=== PATIENT | male | born 1955 | race Caucasian/White ===

== ENCOUNTER 2019-07-10 09:38 | Inpatient (IN) | payer OTHER, MEDICAID ==
[~2019-07-10] VITALS: Ht 152.4 cm; Wt 79.4 kg
[2019-07-10 09:45] VITALS: BP 182/68
--- NOTE | 2019-07-10 10:04 | NUR ---
64/M referred by PCP to be admitted by Dr. Umberto Barrera for left apical thrombus. Pt had ECHO yesterday. Pt asymptomatic. Denies pain, trauma, SOB, CP. Pt placed on bedside monitor. Refused IV insertion at this time. Will speak to ERMD first. BP elevated 175/75, lungs CTAB 98% RA. NAD; bedrails up x1; ERMD to evaluate. med hx: htn,dm, high cholesterol, gerd, heart attack 8 years ago, stent
--- NOTE | 2019-07-10 10:19 | NUR ---
Notified Dr. Hagan of pt BP and referral for left apical thrombus to be admitted under Dr. Barrera.
--- NOTE | 2019-07-10 10:35 | NUR ---
Dr. Hagan evaluating pt at bedside.
--- NOTE | 2019-07-10 10:57 | NUR ---
CXR AT BEDSIDE
--- NOTE | 2019-07-10 11:03 | NUR ---
EMT AT BEDSIDE FOR EKG. BOGGER OPERATOR AT BEDSIDE FOR BLOOD DRAW.
[2019-07-10 11:31] LABS: BASOPHILS # (AUTO) 0.1 K/uL (0.00-0.22); BASOPHILS % (AUTO) 0.9 % (0.0-2.0); EOSINOPHILS # (AUTO) 0.1 K/uL (0-0.4); EOSINOPHILS % (AUTO) 1.1 % (0.0-4.0); HEMATOCRIT 45.8 % (36-52); HEMOGLOBIN 15.3 g/dL (12.0-18.0); LYMPHOCYTES # (AUTO) 1.4 K/uL (2.0-11.5); LYMPHOCYTES % (AUTO) 21.1 % (20.5-51.1); MEAN CORPUSCULAR HEMOGLOBIN 31 pg (27-31); MEAN CORPUSCULAR HGB CONC 33 g/dL (33-37); MEAN CORPUSCULAR VOLUME 91.2 fL (80-94); MONOCYTES # (AUTO) 0.5 K/uL (0.8-1.0); MONOCYTES % (AUTO) 7.2 % (1.7-9.3); NEUTROPHILS # (AUTO) 4.6 K/uL (1.8-7.7); NEUTROPHILS % (AUTO) 69.7 % (42.2-75.2); PLATELET COUNT (AUTO) 166 K/uL (140-450); RED BLOOD CELL COUNT(AUTO) 5.02 MIL/uL (4.20-6.10); RED CELL DISTRIBUTION WIDTH 13.6 % (11.6-13.7); WHITE BLOOD COUNT (AUTO) 6.6 K/uL (4.8-10.8)
[2019-07-10 11:49] LABS: ALBUMIN 4.2 g/dL (3.4-5.0); ANION GAP 15.5 (8-16); CARBON DIOXIDE 26.8 mmol/L (21-32); POTASSIUM 4.3 mmol/L (3.5-5.1); TOTAL BILIRUBIN 0.5 mg/dL (0.0-1.0)
[2019-07-10] MEDS ORDERED: METO50TA34 PO (11:58)
[2019-07-10] MEDS ORDERED: SIMV20TA1 PO (11:58)
[2019-07-10] MEDS ORDERED: NITR0.4S14 SL (11:58)
[2019-07-10] MEDS ORDERED: LISI2.5T5 PO (11:58)
[2019-07-10] MEDS ORDERED: TRI48 PO (11:58)
[2019-07-10] MEDS ORDERED: METF500T PO (11:58)
[2019-07-10] MEDS ORDERED: GLIM2TAB3 PO (11:58)
[2019-07-10] MEDS ORDERED: KETO120S5 TP (11:58)
[2019-07-10] MEDS ORDERED: OMEP20TC10 PO (11:58)
[2019-07-10] MEDS ORDERED: ASPI-1718 PO (11:58)
[2019-07-10] MEDS ORDERED: HEPARIN PER PHARMACY MC PRN (12:05)
--- NOTE | 2019-07-10 12:10 | NUR ---
RECEIVE REPORT FROM ER NURSE, PT IS AAOX4, IV SITE INTACT, IS STABLE, NO SIGNS OF DISTRESS NOTED, INTRODUCE SELF, INTRODUCE TO THE ROOM, UPDATE WHITEBOARD, FAMILY AT BEDSIDE, CALL LIGHT WITHIN REACH.
[2019-07-10 12:17] LABS: PROTHROMBIN TIME 10.3 secs (10.8-13.4)
--- NOTE | 2019-07-10 12:20 | NUR ---
Patient will be admitted to care of DR Dory PLUMMER. Admited to TELE. Will go to [id number] . Belongings list completed. Report to TADEO CARBAJAL.
[2019-07-10] MEDS ORDERED: LISINOPRIL 5 MG TAB PO SCH (13:48)
--- NOTE | 2019-07-10 13:54 | NUR ---
GAVE PT ORDERED MEDICATION, PT EDUCATION GIVE, PT TOLERATE WELL, PT IS STABLE, CALL LIGHT WITHIN REACH.
[2019-07-10] MEDS ORDERED: DEXTROSE 50% 50 ML SYR IVP PRN (14:10)
[2019-07-10] MEDS ORDERED: INSULIN LISPRO SLIDING SCALE 100 UNITS/ML VIAL SUBQ PRN (14:10)
[2019-07-10 16:00] VITALS: BP 140/52
[2019-07-10] MEDS: BLOOD GLUCOSE MONITORING 1 DEV DEV FS SCH ×2 (16:30→21:29)
--- NOTE | 2019-07-10 16:56 | NUR ---
GAVE PT HEPARIN TO START THE HEPARIN DRIP, PT EDUCATION GIVEN, PT TOLERATED WELL, CALL LIGHT WITHIN REACH.
[2019-07-10] MEDS: hePARIN / DEXT 5% PREMIX 250 ML IV SCH (17:11)
--- NOTE | 2019-07-10 17:11 | NUR ---
STARTED HEPARIN DRIP, PT EDUCATION GIVE, PT IS STABLE, CALL LIGHT WITHIN REACH.
[2019-07-10] MEDS ORDERED: LORazepam 2 MG/ML VIAL IVP PRN (17:50)
[2019-07-10] MEDS ORDERED: ONDANSETRON 4 MG/2 ML VIAL IVP PRN (17:50)
[2019-07-10] MEDS ORDERED: HYDROcodone/APAP 5/325 MG 1 TAB TAB PO PRN (17:50)
[2019-07-10] MEDS ORDERED: ACETAMINOPHEN 325 MG TAB PO PRN (17:50)
[2019-07-10] MEDS: metFORMIN 500 MG TAB PO SCH (18:33)
[2019-07-10] MEDS: FENOFIBRATE 48 MG TAB PO SCH (18:33)
[2019-07-10] MEDS: METOPROLOL 50 MG TAB PO SCH (18:33)
[2019-07-10] MEDS: WARFARIN 5 MG TAB PO SCH (18:35)
--- NOTE | 2019-07-10 19:20 | NUR ---
GAVE REPORT TO NIGHT NURSE FOR CONTINUITY OF CARE, PT IS STABLE
--- NOTE | 2019-07-10 19:21 | NUR ---
RECEIVED PT ON BED, AAOX4, ABLE TO MAKE NEEDS KNOWN, VITAL SIGNS STABLE, DENIES ANY PAIN OR SOB, ON HEPARIN DRIP INFUSING WELL, AT 7.9ML/H, NEXT PTT DRAWN AT 2315, PLAN OF CARE DISCUSSED TOGETHER WITH PT'S DAUGHTERS AT BEDSIDE, SAFETY MEASURES IN PLACE, CALL LIGHT WITHIN REACH.
[2019-07-10 20:00] VITALS: BP 149/67
[2019-07-10] MEDS ORDERED: SIMVASTATIN 20 MG TAB PO SCH (21:00)
--- NOTE | 2019-07-10 21:30 | NUR ---
BLOOD SUGAR CHECKED WITH 97 RESULT, SNACK PROVIDED, ZOCOR NOT GIVEN PT STATED THAT HE STOPPED TAKING IT, ALL NEEDS ATTENDED.
[2019-07-11] VITALS: BP 116/52
--- NOTE | 2019-07-11 00:15 | NUR ---
PT AWAKE, VITAL SIGNS STABLE, SB ON TELE, ASYMPTOMATIC, DENIES CHEST PAIN BUT COMPLAINING OF HEADACHE, MEDICATED PRN WITH NORCO, PTT RESULT IN WITH 29.6, HEPARIN PROTOCOL IN PLACE, INCREASE RATE TO 10.5 ML/H, NEXT PTT DRAW AT 0615, CONTINUE TO MONITOR CLOSELY.
[2019-07-11] MEDS: hePARIN / DEXT 5% PREMIX 250 ML IV SCH ×3 (00:16→19:21)
[2019-07-11 04:00] VITALS: BP 118/49
--- NOTE | 2019-07-11 04:00 | NUR ---
PT SLEEPING, EASILY AROUSABLE, VITAL SIGNS STABLE, SB WITH 48 BPM, DENIES ANY PAIN OR SOB, HEPARIN DRIP INFUSING WELL AT 10.5 ML/H, MONITORED CLOSELY.
--- NOTE | 2019-07-11 06:00 | NUR ---
BLOOD SUGAR CHECKED WITH 120 RESULT, NO COVERAGE NEEDED, DENIES ANY PAIN, NO SOB NOTED, HEPARIN DRIP INFUSING WELL AT 10.5ML/H, COFFEE PROVIDED PER REQUEST, MONITORED CLOSELY.
[2019-07-11] MEDS: BLOOD GLUCOSE MONITORING 1 DEV DEV FS SCH ×4 (06:49→21:29)
--- NOTE | 2019-07-11 07:28 | NUR ---
PT AWAKE, NO DISTRESS NOTED, BEDSIDE REPORT GIVEN TO RN TRAV FOR CONTINUITY OF CARE.
--- NOTE | 2019-07-11 07:29 | NUR ---
REPORT RECEIVED FROM BASEBALL HAND SEWER NURSE, PT AAOX4, RESP EVEN UNLABORED ON RA, SKIN WARM DRY COLOR WNL, PT DENIES PAIN OR DISCOMFORT, HEPARIN DRIP INFUSING AT 1050UNITS/10.5ML/HR TO LAC 20G, SITE WNL, POC REVIEWED, PT DENIES ANY IMMEDIATE NEEDS, WILL CONTIUE TO MONITOR.
[2019-07-11 07:38] LABS: BASOPHILS % (AUTO) 0.5 % (0.0-2.0); EOSINOPHILS # (AUTO) 0.2 K/uL (0-0.4); EOSINOPHILS % (AUTO) 3.3 % (0.0-4.0); HEMATOCRIT 42.6 % (36-52); HEMOGLOBIN 14.3 g/dL (12.0-18.0); LYMPHOCYTES % (AUTO) 30.3 % (20.5-51.1); MEAN CORPUSCULAR HEMOGLOBIN 31 pg (27-31); MEAN CORPUSCULAR HGB CONC 34 g/dL (33-37); MEAN CORPUSCULAR VOLUME 91.9 fL (80-94); MONOCYTES # (AUTO) 0.5 K/uL (0.8-1.0); MONOCYTES % (AUTO) 7.9 % (1.7-9.3); NEUTROPHILS # (AUTO) 3.8 K/uL (1.8-7.7); PLATELET COUNT (AUTO) 150 K/uL (140-450); RED BLOOD CELL COUNT(AUTO) 4.64 MIL/uL (4.20-6.10); RED CELL DISTRIBUTION WIDTH 13.7 % (11.6-13.7); WHITE BLOOD COUNT (AUTO) 6.6 K/uL (4.8-10.8)
[2019-07-11 08:00] VITALS: BP 123/58
[2019-07-11 08:15] LABS: MAGNESIUM 1.9 mg/dL (1.8-2.4); PHOSPHORUS 3.7 mg/dL (2.5-4.9)
[2019-07-11 08:16] LABS: CARBON DIOXIDE 29.2 mmol/L (21-32); CREATININE 1.1 mg/dL (0.7-1.3); POTASSIUM 4.2 mmol/L (3.5-5.1)
[2019-07-11 08:25] LABS: PROTHROMBIN TIME 10.9 secs (10.8-13.4)
--- NOTE | 2019-07-11 08:51 | NUR ---
PTT 51.9 PER LAB, NO CHANGE IN HEPARIN DRIP RATE PER PROTOCOL, PT WITHOUT S/S OF BLEEDING, WILL CONTINUE AT 1050UNITS(10.5ML/HR).
[2019-07-11] MEDS: NICOTINE TRANSD SYS 14 MG/24 HR PATCH TD SCH ×2 (09:00→09:34)
--- NOTE | 2019-07-11 09:06 | NUR ---
PATIENT HAS BEEN SCREENED AND CATEGORIZED MODERATE NUTRITION RISK. PATIENT WILL BE SEEN WITHIN 3-5 DAYS OF ADMISSION. 07/13/19 07/15/[address]
[2019-07-11] MEDS: ASPIRIN 81 MG TAB.CHEW PO SCH (09:34)
[2019-07-11] MEDS: LISINOPRIL 5 MG TAB PO SCH (09:34)
[2019-07-11] MEDS: GLIMEPIRIDE 2 MG TAB PO SCH (09:35)
[2019-07-11] MEDS: metFORMIN 500 MG TAB PO SCH ×2 (09:35→17:24)
--- NOTE | 2019-07-11 09:38 | NUR ---
AM MEDS GIVEN, PT PAXTON PILLS WELL, REFUSES NICOTINE PATCH, STATES HE DOES NOT NEED IT NOW. AT BEDSIDE. DENIES ANY NEEDS.
[2019-07-11 12:00] VITALS: BP 143/66
--- NOTE | 2019-07-11 12:22 | NUR ---
BLOOD SUGAR 163, PER PROTOCOL, PT TO RECEIVE 2U INSULIN, PT REFUSES BECAUSE HE HAS NEVER TAKEN INSULIN BEFORE AND BLOOD SUGAR IS NOT THAT HIGH.
--- NOTE | 2019-07-11 14:30 | NUR ---
PT SITTING UP IN BED IN NO ACUTE DISTRESS, CONTINUES WITH HEP DRIP, DENIES PAIN OR DISCOMFORT, DENIES ANY NEEDS AT THIS TIME, WILL CONTINUE TO MONITOR.
[2019-07-11 16:00] VITALS: BP 99/57
[2019-07-11] MEDS: METOPROLOL 50 MG TAB PO SCH (17:00)
[2019-07-11] MEDS: FENOFIBRATE 48 MG TAB PO SCH (17:24)
[2019-07-11] MEDS: WARFARIN 5 MG TAB PO SCH (17:28)
--- NOTE | 2019-07-11 17:31 | NUR ---
NEW BAG OF HEPARIN STARTED, PTT DRAWN AT 1500, AWAITING RESULTS, CONTINUE WITH 1050UNITS PER HOUR, BLOOD SUGAR 104, NO INSULIN NEEDED PER SLIDING SCALE, SCHEDULED METOPROLOL HELD FOR DECREASED BP 99/57. PT DENIES ANY PAIN OR DISCOMFORT, NO ACTIVE BLEEDING OR BRUISING NOTED, DENIES ANY NEEDS, DAUGHTER AT BEDSIDE, WILL CONTINUE TO MONITOR.
[2019-07-11 18:17] LABS: CREATINE KINASE MB 0.5 ng/mL (0-3.6)
--- NOTE | 2019-07-11 19:15 | NUR ---
PTT 33.2, PER PROTOCOL- HEPARIN BOLUS 3960 UNITS GIVEN, RATE INCREASED BY 260 UNITS TO 1310 UNITS/HR (13.1ML/HR), NO S/S OF BLEEDING NOTED.
--- NOTE | 2019-07-11 19:20 | NUR ---
REPORT GIVEN TO NUCLEAR FUEL PROCESSING TECHNICIAN NURSE JEFFREY GONZALES IN STABLE CONDITION.
--- NOTE | 2019-07-11 19:22 | NUR ---
RECEIVED PT ON BED, AAOX4, ABLE TO MAKE NEEDS KNOWN, VITAL SIGNS TAKEN, BP SLIGHTLY ELEVATED, ASYMPTOMATIC, DENIES ANY PAIN AND NO SOB NOTED, HEPARIN DRIP INFUSING WELL AT 1310 UNITS/H, ON HEPARIN DRIP PROTOCOL, PLAN OF CARE DISCUSSED, SAFETY MEASURES IN PLACE, CALL LIGHT WITHIN REACH.
[2019-07-11 20:00] VITALS: BP 148/72
--- NOTE | 2019-07-11 20:15 | NUR ---
BLOOD SUGAR CHECKED WITH 141 RESULT, NO COVERAGE NEEDED, REFUSED BEDTIME SNACK BUT PROVIDED WITH COFFEE PER REQUEST, FAMILY VISITORS AT BEDSIDE, ALL NEEDS ATTENDED.
--- NOTE | 2019-07-11 21:35 | NUR ---
PT SEEN AMBULATING TO BR WITH STEADY GAIT, VOIDED FREELY, DENIES ANY DIZZINESS OR SOB, MONITORED CLOSELY.
[2019-07-12] VITALS: BP 129/55
--- NOTE | 2019-07-12 | NUR ---
PT SLEEPING, EASILY AROUSABLE, VITAL SIGNS STABLE, SB ON TELE, ASYMPTOMATIC, DENIES ANY PAIN AND NO SOB NOTED, HEPARIN DRIP INFUSING WELL AT 1310 UNITS/H, NEXT PTT DRAW AT 0115, CONTINUE TO MONITOR CLOSELY.
--- NOTE | 2019-07-12 02:00 | NUR ---
PT IN BED SLEEPING BUT AROUSABLE TO NAME AND LIGHT TOUCH, IV SITE INTACT AND ASYMPTOMATIC; HEPARIN GTT CONTINUES AT SAME RATE 1310 UNITS, NO S/S OF BRUISING OR BLEEDING.ALL UNIVERSAL PRECAUTIONS IN PLACE.
[2019-07-12 04:00] VITALS: BP 135/69
--- NOTE | 2019-07-12 05:50 | NUR ---
PT SLEEPING, EASILY AROUSABLE, BLOOD SUGAR CHECKED WITH 140 RESULT, NO COVERAGE NEEDED, HEPARIN DRIP INFUSING WELL AT 1310 UNITS PER HOUR, NEXT PTT AT 0719, MONITORED CLOSELY.
[2019-07-12] MEDS: BLOOD GLUCOSE MONITORING 1 DEV DEV FS SCH ×4 (06:40→20:53)
--- NOTE | 2019-07-12 07:20 | NUR ---
PT AWAKE, NO DISTRESS NOTED, BEDSIDE REPORT GIVEN TO SOLOMON ARAGON FOR CONTINUITY OF CARE.
--- NOTE | 2019-07-12 07:57 | NUR ---
RECEIVED PT FROM LINE OUT MAN FOR CONTINUITY OF CARE. PT IN BED, AAOX4, ABLE TO MAKE NEEDS KNOWN. VITAL SIGNS TAKEN, BP SLIGHTLY ELEVATED BUT ASYMPTOMATIC. PT DENIES ANY PAIN AND NO SOB NOTED. HEPARIN DRIP INFUSING WELL AT 1310 UNITS/HR. ON HEPARIN DRIP PROTOCOL. PT SKIN INTACT. IV IN THE LEFT AC 20G. DISCUSSED POC WITH PT AND PT VERBALIZED UNDERSTANDING. SAFETY MEASURES IN PLACE, CALL LIGHT WITHIN REACH. BED IN LOW POSITION. WILL ROUND FREQUENTLY ON PT.
[2019-07-12 08:00] VITALS: BP 123/60
[2019-07-12 08:24] LABS: BASOPHILS # (AUTO) 0.1 K/uL (0.00-0.22); EOSINOPHILS # (AUTO) 0.2 K/uL (0-0.4); EOSINOPHILS % (AUTO) 2.9 % (0.0-4.0); HEMATOCRIT 45.1 % (36-52); HEMOGLOBIN 15.1 g/dL (12.0-18.0); LYMPHOCYTES # (AUTO) 1.8 K/uL (2.0-11.5); LYMPHOCYTES % (AUTO) 32.8 % (20.5-51.1); MEAN CORPUSCULAR HEMOGLOBIN 31 pg (27-31); MEAN CORPUSCULAR HGB CONC 34 g/dL (33-37); MEAN CORPUSCULAR VOLUME 91.3 fL (80-94); MONOCYTES # (AUTO) 0.4 K/uL (0.8-1.0); NEUTROPHILS # (AUTO) 3.1 K/uL (1.8-7.7); NEUTROPHILS % (AUTO) 55.3 % (42.2-75.2); PLATELET COUNT (AUTO) 160 K/uL (140-450); RED BLOOD CELL COUNT(AUTO) 4.94 MIL/uL (4.20-6.10); RED CELL DISTRIBUTION WIDTH 13.9 % (11.6-13.7); WHITE BLOOD COUNT (AUTO) 5.6 K/uL (4.8-10.8)
[2019-07-12 08:26] LABS: ANION GAP 13.9 (8-16); CARBON DIOXIDE 26.5 mmol/L (21-32); POTASSIUM 4.4 mmol/L (3.5-5.1)
[2019-07-12 08:29] LABS: PROTHROMBIN TIME 12.1 secs (10.8-13.4)
[2019-07-12] MEDS: NICOTINE TRANSD SYS 14 MG/24 HR PATCH TD SCH (09:00)
--- NOTE | 2019-07-12 10:10 | NUR ---
ADMINISTERED MORNING MEDS TO PT. PT TOLERATED WELL. ALL NEEDS CURRENTLY MET. WILL CONTINUE TO ROUND FREQUENTLY ON PT.
[2019-07-12] MEDS: ASPIRIN 81 MG TAB.CHEW PO SCH (10:44)
[2019-07-12] MEDS: metFORMIN 500 MG TAB PO SCH ×2 (10:44→17:31)
[2019-07-12] MEDS: LISINOPRIL 5 MG TAB PO SCH (10:44)
[2019-07-12] MEDS: GLIMEPIRIDE 2 MG TAB PO SCH (10:45)
--- NOTE | 2019-07-12 11:53 | NUR ---
PT BS IS 157 AT THIS TIME. PT REFUSING INSULIN COVERAGE OF 2 UNITS. WILL ROUND FREQUENTLY ON PT. ALL NEEDS MET AT THIS TIME.
[2019-07-12 12:00] VITALS: BP 144/67
--- NOTE | 2019-07-12 13:17 | NUR ---
PT WALKING AROUND UNIT. ALL NEEDS MET. WILL CONTINUE TO ROUND FREQUENTLY ON PT. BED IN LOW POSITION, CALL LIGHT WITHIN REACH.
[2019-07-12] MEDS: hePARIN / DEXT 5% PREMIX 250 ML IV SCH (14:22)
--- NOTE | 2019-07-12 14:47 | NUR ---
ALLY assessment/discharge plan High Risk DC Screen Yes Name: Norah Brito Home Relationship: Pre-Admission Living Arrangements: Lives with Other Other: Norah Brito Prior ADL Independent Current Home Health Name/Tel: N/A Current DME/02 Name/Tel: N/A Current Hospice Name/Tel: N/A Current Dialysis Name/Tel: N/A Healthcare Decision Maker: Patient Advance Directive No Information Taught: Advance Directive Person Taught: Children Patient Teaching Tools: Computer Generated Print Verbal Factors Affecting Learning: None Participation Level: Active Evaluation: Gestures Understanding Verbalizes Understanding Educator: ALLY Nazario Discipline: Case Mgt/Social Svcs Tentative Discharge Plan Summary: Patient is a 64 year old male admitted for apical thrombus. I met with patient and patient's daughter Norah Brito at bedside. Patient's name is also Norah Brito. Patient alert and oriented x4. Patient lives with his Norah and plans to return home upon discharge. Patient's pcp is [facility] ([place], [place]) and he does not have any difficulty filling his prescriptions at pharmacy. He drives to pcp's office. He denied hx of mental health. He also denied alcohol/substance abuse. I reviewed Advance Driective in chart, two witnesses are also the primary and secondary agents, form is not signed by patient. I gave Advance Directive back to patient and explained to both patient and his daughter Norah Advance Directive is not valid and explained why. They both verbalized understanding. I provided them with education on Advance Directive and provided new form. They do not have any questions/concerns at this time. Firmware Architect and/or Delimer will follow up as needed. Signature: ALLY Nazario Date: Jul 12, 2019
--- NOTE | 2019-07-12 15:36 | NUR ---
PT RESTING IN BED WITH DAUGHTER AT BEDSIDE. ALL NEEDS MET. WILL CONTINUE TO ROUND FREQUENTLY ON PT.
[2019-07-12 16:00] VITALS: BP 146/63
[2019-07-12] MEDS ORDERED: WARFARIN 1 MG TAB ONE (17:27)
[2019-07-12] MEDS ORDERED: WARFARIN 5 MG TAB ONE (17:27)
[2019-07-12] MEDS: METOPROLOL 50 MG TAB PO SCH (17:31)
[2019-07-12] MEDS: FENOFIBRATE 48 MG TAB PO SCH (17:31)
[2019-07-12] MEDS: WARFARIN 5 MG, WARFARIN 1 MG PO SCH ×2 (17:33)
--- NOTE | 2019-07-12 17:47 | NUR ---
PT RESTING IN BED. ALL NEEDS MET. WILL CONTINUE TO ROUND ON PT.
--- NOTE | 2019-07-12 19:30 | NUR ---
RECEIVED REPORT FORM MARGO CARBAJAL DAYSHIFT NURSE AT BEDSIDE FOR CONTINUITY OF CARE, PT IN STABLE CONDITION.
--- NOTE | 2019-07-12 19:32 | NUR ---
ENDORSED PT TO ELECTRICAL AND RADIO AIRCRAFT MECHANIC FOR CONTINUITY OF CARE. PT IN STABLE CONDITION AT THIS TIME.
[2019-07-12 20:00] VITALS: BP 133/50
--- NOTE | 2019-07-12 20:00 | NUR ---
PT IN BED AOX4 GREENLANDIC AND AUSTRIAN SPEAKING. SKIN INTACT, HE HAS AN IV SITE ON LAC INTACT AND ASYMPTOMATIC. ITS RUNNING HEPARIN GTT AT 1310 UNITS PT HAS NO S/S OF BLEEDING OR BRUISING NOTED. HIS RESPIRATIONS ARE EVEN AND UNLABORED, POSITIVE BOWEL SOUNDS IN ALL 4 QUADS. V/S FOLLOWS; T 97.3 P 53 R 18 B/P 133/50 02 97% ON ROOM AIR. ALL UNIVERSAL PRECAUTIONS IN PLACE.
--- NOTE | 2019-07-12 21:00 | NUR ---
PT FINGERSTICK IS 111, NO HUMALOG COVERAGE NEEDED. NO S/S OF BRUISING OR BLEEDING. HEPARIN GTT RUNNING ORDERED.ALL UNIVERSAL PRECAUTIONS IN PLACE.
--- NOTE | 2019-07-12 22:00 | NUR ---
PT IN BED AWAKE AND SPEAKING WITH ROOMMATE, NO S/S OF PAIN OR DISTRESS NOTED ALL UNIVERSAL PRECAUTIONS IN PLACE.
[2019-07-13] VITALS (7 sets, daily range): BP systolic 116–147; BP diastolic 57–70
--- NOTE | 2019-07-13 | NUR ---
PT IN BED ASLEEP BUT AROUSABLE TO NAME AND LIGHT TOUCH, NO C/O VOICED BY PT . IV HEPARIN GTT CONTINUES AT SAME RATE OF 1310. NO S/S OF BRUISING OR BLEEDING NOTED. PT RESPIRATIONS EVEN AND UNLABORED. V/S A FOLLOWS: T 98.4 P 63 R 18 B/P 116/62 02 98% ON ROOM AIR. ARE EVEN AND UNLABORED , NO C/O VOICED AT THIS TIME AND ALL UNIVERSAL PRECAUTIONS IN PLACE.
[2019-07-13] MEDS: BLOOD GLUCOSE MONITORING 1 DEV DEV FS SCH ×4 (05:40→20:03)
--- NOTE | 2019-07-13 07:20 | NUR ---
RECEIVED PT FROM GRADE SCHOOL TEACHER NURSE, KJ, PT IS AWAKE AND SEATED ON THE BED WITH IV LINE ON THE LEFT AC G. 20 WITH HEPARIN DRIP INFUSING AT 1310 UNITS/HR, PT DENIES PAIN AND NO SOB NOTED, WILL CONTINUE TO MONITOR PT.
[2019-07-13] MEDS: NICOTINE TRANSD SYS 14 MG/24 HR PATCH TD SCH (09:00)
[2019-07-13] MEDS: ASPIRIN 81 MG TAB.CHEW PO SCH (09:00)
[2019-07-13] MEDS: metFORMIN 500 MG TAB PO SCH ×2 (09:01→17:07)
[2019-07-13] MEDS: GLIMEPIRIDE 2 MG TAB PO SCH (09:01)
[2019-07-13] MEDS: LISINOPRIL 5 MG TAB PO SCH (09:02)
[2019-07-13] MEDS: hePARIN / DEXT 5% PREMIX 250 ML IV SCH (10:34)
--- NOTE | 2019-07-13 10:35 | NUR ---
A NEW BAG OF HEPARIN IVF WAS STARTED NOW.
[2019-07-13 13:30] LABS: BASOPHILS # (AUTO) 0.1 K/uL (0.00-0.22); EOSINOPHILS # (AUTO) 0.2 K/uL (0-0.4); EOSINOPHILS % (AUTO) 2.4 % (0.0-4.0); HEMOGLOBIN 15.8 g/dL (12.0-18.0); LYMPHOCYTES # (AUTO) 2.2 K/uL (2.0-11.5); LYMPHOCYTES % (AUTO) 30.9 % (20.5-51.1); MEAN CORPUSCULAR HEMOGLOBIN 31 pg (27-31); MEAN CORPUSCULAR HGB CONC 34 g/dL (33-37); MEAN CORPUSCULAR VOLUME 91.2 fL (80-94); MONOCYTES # (AUTO) 0.6 K/uL (0.8-1.0); MONOCYTES % (AUTO) 8.2 % (1.7-9.3); NEUTROPHILS # (AUTO) 4.1 K/uL (1.8-7.7); NEUTROPHILS % (AUTO) 57.5 % (42.2-75.2); PLATELET COUNT (AUTO) 172 K/uL (140-450); RED BLOOD CELL COUNT(AUTO) 5.15 MIL/uL (4.20-6.10); RED CELL DISTRIBUTION WIDTH 14.2 % (11.6-13.7); WHITE BLOOD COUNT (AUTO) 7.1 K/uL (4.8-10.8)
[2019-07-13 13:49] LABS: ANION GAP 15.5 (8-16); CARBON DIOXIDE 26.5 mmol/L (21-32)
[2019-07-13 13:51] LABS: PROTHROMBIN TIME 11.6 secs (10.8-13.4)
--- NOTE | 2019-07-13 14:14 | NUR ---
NILESH FROM LAB CALLED AND INFORMED THAT PT'S PTT IS 52.6, NOTED AND WILL CHECK THEARPEUTIC VALUE.
[2019-07-13] MEDS ORDERED: WARFARIN 1 MG TAB ONE (16:37)
[2019-07-13] MEDS ORDERED: WARFARIN 5 MG TAB ONE (16:37)
[2019-07-13] MEDS: METOPROLOL 50 MG TAB PO SCH (17:06)
[2019-07-13] MEDS: FENOFIBRATE 48 MG TAB PO SCH (17:06)
[2019-07-13] MEDS: WARFARIN 5 MG, WARFARIN 1 MG PO SCH ×2 (17:13)
--- NOTE | 2019-07-13 19:10 | NUR ---
ENDORSED PT TO EDGE STAINER NURSEKJ FOR CONTINUITY OF CARE, PT IS STABLE AT THIS TIME.
--- NOTE | 2019-07-13 19:10 | NUR ---
RECEIVED REPORT FROM JEWELS CARBAJAL DAYSHIFT NURSE AT BEDSIDE FOR CONTINUITY OF CARE, PT IN STABLE CONDITION.
--- NOTE | 2019-07-13 19:57 | NUR ---
PT IN BED FAMILY AT BEDSIDE, HE IS SITTING UP AOX4 WITH NO C/O VOICED AT THIS TIME IV SITE REMAINS INTACT AND ASYMPTOMATIC IT IS RUNNING HEPARIN GTT AT THE RATE OF 1310. V/S FOLLOWS: T 98.7 P 58 R 18 B/P 137/58 02 97% ON ROOM AIR. FINGERSTICK IS 184, PT DECLINES ANY HUMALOG COVERAGE AT THIS TIME. ALL UNIVERSAL FALLS PRECAUTIONS IN PLACE.
--- NOTE | 2019-07-13 22:30 | NUR ---
PT IN BED NO S/S OF PAIN OR DISTRESS NOTED, IV SITE ON LAC INTACT AND ASYMPTOMATIC. ALL UNIVERSAL FALLS PRECAUTIONS IN PLACE. BATTERIES FOR TELEBOX CHANGED.
--- NOTE | 2019-07-13 23:43 | NUR ---
PT IN BED NO S/S OF PAIN OR DISTRESS NOTED, PT PATRICIO PAIN. IV SITE INTACT AND ASYMPTOMATIC, RUNNING HEPARIN GTT AT 1310. V/S FOLLOWS: T 97.9 P 61 R 18 B/P 126/57 02 96% ON ROOM AIR . ALL UNIVERSAL FALLS PRECAUTIONS IN PLACE.
--- NOTE | 2019-07-14 02:00 | NUR ---
PT IN BED SLEEPING NO S/S OF PAIN OR DISTRESS NOTED. ALL UNIVERSAL FALLS IN PLACE.
[2019-07-14 04:00] VITALS: BP 124/61
--- NOTE | 2019-07-14 04:00 | NUR ---
PT IN BED ASLEEP BUT AROUSABLE TO NAME AND LIGHT TOUCH V/S FOLLOWS: T 97.3 P 53 R 18 B/P 124/61 02 97% ON ROOM AIR.
--- NOTE | 2019-07-14 06:00 | NUR ---
PT FINGERSTICK IS 161, HE DECLINES ANY HUMALOG COVERAGE AT THIS TIME. PT ALSO REFUSED LAB DRAWS DUE THIS AM, HE SAID THAT HE MAY ALLOW THE LAB DRAWS LATER. WILL ENDORSE TO NEXT SHIFT.
--- NOTE | 2019-07-14 07:30 | NUR ---
RECEIVED PT FROM HIDE INSPECTOR NURSE, KJ, PT IS AWAKE AND LYING ON THE BED WITH SIDE RAILS UP AND CALL LIGHT WITHIN REACH, PERIPHERAL LINE ON THE LEFT AC G. 20 WITH CONTINUOUS HEPARIN DRIP INFUSING AT 1310 UNITS/HR, PT DENIES PAIN AND NO SIGN OF DISTRESS NOTED. WILL CONTINUE TO MONITOR PT.
[2019-07-14] MEDS: BLOOD GLUCOSE MONITORING 1 DEV DEV FS SCH ×4 (07:40→21:00)
[2019-07-14 08:00] VITALS: BP 125/64
[2019-07-14] MEDS: NICOTINE TRANSD SYS 14 MG/24 HR PATCH TD SCH (09:00)
[2019-07-14] MEDS: ASPIRIN 81 MG TAB.CHEW PO SCH (09:20)
[2019-07-14] MEDS: GLIMEPIRIDE 2 MG TAB PO SCH (09:21)
[2019-07-14] MEDS: metFORMIN 500 MG TAB PO SCH ×2 (09:21→17:47)
--- NOTE | 2019-07-14 09:21 | NUR ---
PT IS AWAKE AND DAUGHTER ON THE BEDSIDE, SCHEDULED AM MEDICATIONS WERE GIVEN TO PT, PARAMETERS CHECKED AND TOLERATED IT. WILL MONITOR PT.
[2019-07-14] MEDS: LISINOPRIL 5 MG TAB PO SCH (09:24)
[2019-07-14 12:00] VITALS: BP 127/59
--- NOTE | 2019-07-14 12:21 | NUR ---
BLOOD GLUCOSE CHECK DONE AT 1130 AND RESULT IS 165 BUR PT REFUSED TO RECEIVED THE INSULIN COVERAGE.
[2019-07-14 14:59] LABS: BASOPHILS # (AUTO) 0.1 K/uL (0.00-0.22); BASOPHILS % (AUTO) 0.8 % (0.0-2.0); EOSINOPHILS # (AUTO) 0.2 K/uL (0-0.4); EOSINOPHILS % (AUTO) 2.4 % (0.0-4.0); HEMATOCRIT 47.2 % (36-52); HEMOGLOBIN 15.7 g/dL (12.0-18.0); LYMPHOCYTES # (AUTO) 2.1 K/uL (2.0-11.5); LYMPHOCYTES % (AUTO) 29.6 % (20.5-51.1); MEAN CORPUSCULAR HEMOGLOBIN 30 pg (27-31); MEAN CORPUSCULAR HGB CONC 33 g/dL (33-37); MEAN CORPUSCULAR VOLUME 91.3 fL (80-94); MONOCYTES # (AUTO) 0.6 K/uL (0.8-1.0); NEUTROPHILS # (AUTO) 4.1 K/uL (1.8-7.7); NEUTROPHILS % (AUTO) 58.2 % (42.2-75.2); PLATELET COUNT (AUTO) 163 K/uL (140-450); RED BLOOD CELL COUNT(AUTO) 5.17 MIL/uL (4.20-6.10)
[2019-07-14 15:11] LABS: PROTHROMBIN TIME 12.3 secs (10.8-13.4)
[2019-07-14 15:12] LABS: ANION GAP 14.4 (8-16); CARBON DIOXIDE 27.6 mmol/L (21-32); CREATININE 1.1 mg/dL (0.7-1.3)
--- NOTE | 2019-07-14 15:15 | NUR ---
PT IS WATCHING TV AND FAMILY ON BEDSIDE, DENIES PAIN. WILL MONITOR PT.
[2019-07-14 16:00] VITALS: BP 152/65
[2019-07-14] MEDS ORDERED: WARFARIN 1 MG TAB ONE (17:22)
[2019-07-14] MEDS ORDERED: WARFARIN 5 MG TAB ONE (17:22)
[2019-07-14] MEDS: FENOFIBRATE 48 MG TAB PO SCH (17:47)
[2019-07-14] MEDS: METOPROLOL 50 MG TAB PO SCH (17:48)
--- NOTE | 2019-07-14 17:48 | NUR ---
PT WAS GIVEN THE SCHEDULED PM MEDICATIONS, PARAMETERS CHECKED AND TOLERATED. IT, DISCUSSED NECESSARY THINGS THAT NEED TO BE AVOIDED AND PT VERBALIZED UNDERSTANDING.
[2019-07-14] MEDS: WARFARIN 5 MG, WARFARIN 1 MG PO SCH ×2 (17:51)
--- NOTE | 2019-07-14 19:10 | NUR ---
ENDORSED PT TO [facility] SHIFT NURSEKJ FOR CONTINUITY OF CARE. PT IS STABLE AT THIS TIME WITH HEPARIN DRIP STILL INFUSING.
--- NOTE | 2019-07-14 19:15 | NUR ---
RECEIVED ENDORSEMENT FOR PLAN OF CARE AT BEDSIDE FROM JEWELS CARBAJAL DAYSHIFT NURSE FOR CONTINUITY OF CARE, PT IN STABLE CONDITION.
[2019-07-14 20:00] VITALS: BP 147/63
--- NOTE | 2019-07-14 20:00 | NUR ---
PT SITTING UP IN BED NO S/S OF PAIN OR DISTRESS NOTED. IV SITE ON LAC 20 GUAGE INTACT AND RUNNING HEPARIN GTT AT 1310 NO S/S OF BRUISING OR BLEEDING. PT ALSO PATRICIO ANY PAIN OR DISCOMFORT. V/S FOLLOWS: T 97.4 P 59 R 18 B/P 149/65 02 97% ON ROOM AIR. ALL UNIVERSAL FALLS PRECAUTIONS IN PLACE .
--- NOTE | 2019-07-14 20:35 | NUR ---
PT FINGERSTICK IS 136, NO HUMALOG COVERAGE REQUIRED, DIABETIC SNACK GIVEN AT BEDSIDE.
--- NOTE | 2019-07-14 22:30 | NUR ---
PT IN BED SITTING UP AND WATCHING TV NO S/S OF PAIN OR DISTRESS NOTED. IV SITE INTACT AND RUNNING HEPARIN GTT AT 1310 ORDERED. ALL UNIVERSAL FALLS PRECAUTIONS IN PLACE.
[2019-07-15] VITALS: BP 149/65
--- NOTE | 2019-07-15 00:30 | NUR ---
PT IN BED SITTING UP AND WATCHING TV NO C/O VOICED, IV SITE INTACT AND ASYMPTOMATIC RUNNING HEPARIN GTT ORDERED. V/S FOLLOWS; T 98.7 P 61 R 18 B/P 147/63 02 98% ON ROOM AIR. ALL FALLS PRECAUTIONS IN PLACE.
[2019-07-15] MEDS: hePARIN / DEXT 5% PREMIX 250 ML IV SCH ×3 (01:40→21:54)
--- NOTE | 2019-07-15 02:20 | NUR ---
PT IN BED ASLEEP, NO S/S OF PAIN OR DISTRESS NOTED. HEPARIN BAG REPLACED.
[2019-07-15 04:00] VITALS: BP 128/65
--- NOTE | 2019-07-15 04:00 | NUR ---
PT IN BED NO S/S OF PAIN OR DISTRESS NOTED IV SITE INTACT AND CONTINUES W HEPARIN GT V/S FOLLOWS:T 98.0 P 58 R 18 B/P 128/65 O2 95% ON ROOM AIR.
--- NOTE | 2019-07-15 06:00 | NUR ---
FINGERSTICK IS 144, NO HUMALOG COVERAGE NEEDED.
[2019-07-15] MEDS: BLOOD GLUCOSE MONITORING 1 DEV DEV FS SCH ×4 (06:20→20:57)
--- NOTE | 2019-07-15 07:15 | NUR ---
RECEIVED BEDSIDE REPORT FROM NIGHT NURSE. PATIENT IS AWAKE, ALERT, AND ORIENTED X4. IV INTACT AND PATENT TO LEFT AC WITH HEPARIN DRIP INFUSING @ 1310 UNITS. PLANS OF CARE DISCUSSED. BED IN LOW POSITION. SAFETY MEASURES IN PLACE. CALL LIGHT WITHIN REACH.
[2019-07-15 08:00] VITALS: BP 130/63
[2019-07-15] MEDS: GLIMEPIRIDE 2 MG TAB PO SCH (08:21)
[2019-07-15] MEDS: LISINOPRIL 5 MG TAB PO SCH (08:21)
[2019-07-15] MEDS: ASPIRIN 81 MG TAB.CHEW PO SCH (08:21)
[2019-07-15] MEDS: metFORMIN 500 MG TAB PO SCH ×2 (08:21→17:23)
[2019-07-15] MEDS: NICOTINE TRANSD SYS 14 MG/24 HR PATCH TD SCH (08:22)
--- NOTE | 2019-07-15 09:00 | NUR ---
PATIENT IS AWAKE, ALERT AND ORIENTED X4. NO S/S OF DISTRESS NOTED. AM MEDICATIONS GIVEN ORDERED. HEPARIN DRIP CONT INFUSING @ 1310UNITS. NO BLEEDING NOTED. CALL LIGHT WITHIN REACH.
--- NOTE | 2019-07-15 11:00 | NUR ---
PATIENT IS AWAKE, ALERT AND ORIENTED X4. NO S/S OF DISTRESS NOTED. AM MEDICATIONS GIVEN ORDERED. HEPARIN DRIP CONT INFUSING @ 1310 UNITS. NO BLEEDING NOTED. CALL LIGHT WITHIN REACH.
[2019-07-15 12:00] VITALS: BP 139/73
--- NOTE | 2019-07-15 13:00 | NUR ---
PATIENT IS AWAKE, ALERT AND ORIENTED X4. PATIENT ATE LUNCH. NO S/S OF DISTRESS NOTED. HEPARIN DRIP CONT INFUSING @ 1310UNITS. NO BLEEDING NOTED. CALL LIGHT WITHIN REACH.
[2019-07-15 14:27] LABS: BASOPHILS # (AUTO) 0.1 K/uL (0.00-0.22); EOSINOPHILS # (AUTO) 0.3 K/uL (0-0.4); EOSINOPHILS % (AUTO) 3.7 % (0.0-4.0); HEMATOCRIT 47.3 % (36-52); HEMOGLOBIN 15.6 g/dL (12.0-18.0); LYMPHOCYTES % (AUTO) 26.4 % (20.5-51.1); MEAN CORPUSCULAR HEMOGLOBIN 30 pg (27-31); MEAN CORPUSCULAR HGB CONC 33 g/dL (33-37); MEAN CORPUSCULAR VOLUME 91.8 fL (80-94); MONOCYTES # (AUTO) 0.7 K/uL (0.8-1.0); MONOCYTES % (AUTO) 9.4 % (1.7-9.3); NEUTROPHILS # (AUTO) 4.4 K/uL (1.8-7.7); NEUTROPHILS % (AUTO) 59.5 % (42.2-75.2); PLATELET COUNT (AUTO) 171 K/uL (140-450); RED BLOOD CELL COUNT(AUTO) 5.15 MIL/uL (4.20-6.10); RED CELL DISTRIBUTION WIDTH 13.9 % (11.6-13.7); WHITE BLOOD COUNT (AUTO) 7.4 K/uL (4.8-10.8)
[2019-07-15 14:47] LABS: PROTHROMBIN TIME 13.5 secs (10.8-13.4)
[2019-07-15 14:51] LABS: ANION GAP 13.2 (8-16); CARBON DIOXIDE 30.2 mmol/L (21-32); CREATININE 1.1 mg/dL (0.7-1.3); POTASSIUM 4.4 mmol/L (3.5-5.1)
--- NOTE | 2019-07-15 15:40 | NUR ---
PATIENT IS AWAKE, VERBALLY RESPONSIVE. FAMILY AT BEDSIDE. NO S/S OF DISTRESS NOTED.
[2019-07-15 16:00] VITALS: BP 125/86
--- NOTE | 2019-07-15 16:09 | NUR ---
07/15/19 RD INITIAL ASSESSMENT COMPLETED PLEASE REFER TO NUTRITION ASSESSMENT UNDER CARE ACTIVITY FOR ESTIMATED NUTRITIONAL NEEDS. 1. RECOMMEND CARDIAC CCHO 60GM DIET. 2. NUTRITION EDUCATION OFFERED, PT DECLINED. 3. RD TO FOLLOW-UP 3-5 DAYS, MODERATE RISK CHACHA FELDER, RD
--- NOTE | 2019-07-15 16:57 | NUR ---
RECEIVED APTT LEVEL 64.9. PER PHARMACY PROTOCOL NO CHANGES. CHARGE NURSE AWARE.
[2019-07-15] MEDS ORDERED: WARFARIN 2.5 MG TAB ONE (17:09)
[2019-07-15] MEDS ORDERED: WARFARIN 5 MG TAB ONE (17:09)
[2019-07-15] MEDS: FENOFIBRATE 48 MG TAB PO SCH (17:23)
[2019-07-15] MEDS: METOPROLOL 50 MG TAB PO SCH (17:23)
[2019-07-15] MEDS: WARFARIN 2.5 MG, WARFARIN 5 MG PO SCH ×2 (17:25)
--- NOTE | 2019-07-15 17:40 | NUR ---
PATIENT IS AWAKE, VERBALLY RESPONSIVE. FAMILY AT BEDSIDE. NO S/S OF DISTRESS NOTED. BS 98. CALL LIGHT WITHIN REACH.
--- NOTE | 2019-07-15 19:03 | NUR ---
PATIENT IS AAOX4. VERBALLY RESPONSIVE. DENIES ANY PAIN OR DISCOMFORT. NO S/S OF DISTRESS NOTED. CALL LIGHT WITHIN REACH. BED IN LOW POSITION. WILL ENDORSE TO NIGHT NURSE FOR CONTINUITY OF CARE.
--- NOTE | 2019-07-15 19:10 | NUR ---
RECEIVED PT ON BED, AAOX4, ABLE TO MAKE NEEDS KNOWN, VITAL SIGNS STABLE, SB ON TELE, ASYMPTOMATIC, DENIES ANY PAIN OR SOB, HEPARIN DRIP INFUSING WELL AT 1310 UNITS/H, PLAN OF CARE DISCUSSED, SAFETY MEASURES IN PLACE, CALL LIGHT WITHIN REACH.
[2019-07-15 20:00] VITALS: BP 134/57
--- NOTE | 2019-07-15 21:00 | NUR ---
BLOOD SUGAR CHECKED WITH 195 RESULT, REFUSED SLIDING SCALE COVERAGE, RISK AND BENEFITS EXPLAINED, STILL REFUSING STATED "IT WILL GO DOWN BY ITSELF", COFFEE PROVIDED PER REQUEST, ALL NEEDS ATTENDED.
[2019-07-16] VITALS: BP 119/56
--- NOTE | 2019-07-16 | NUR ---
PT SLEEPING, EASILY AROUSABLE, VITAL SIGNS STABLE, SB ON TELE, ASYMPTOMATIC, DENIES PAIN OR SOB, HEPARIN DRIP INFUSING WELL AT 1310 UNITS/H, CONTINUE TO MONITOR CLOSELY.
[2019-07-16] MEDS ORDERED: hePARIN / DEXT 5% PREMIX 250 ML IV SCH (02:15)
[2019-07-16] MEDS ORDERED: HEPARIN PER PHARMACY MC PRN (02:15)
[2019-07-16 04:00] VITALS: BP 123/68
--- NOTE | 2019-07-16 04:00 | NUR ---
PT SLEEPING, EASILY AROUSABLE, VITAL SIGNS STABLE, SB ON TELE, ASYMPTOMATIC, HEPARIN DRIP INFUSING WELL, MONITORED CLOSELY.
--- NOTE | 2019-07-16 05:40 | NUR ---
BLOOD SUGAR CHECKED WITH 152 RESULT, REFUSED COVERAGE, RISK AND BENEFITS EXPLAINED, NO DISTRESS NOTED, PT WENT BACK TO SLEEP, MONITORED CLOSELY.
[2019-07-16] MEDS: BLOOD GLUCOSE MONITORING 1 DEV DEV FS SCH ×4 (06:56→21:38)
--- NOTE | 2019-07-16 07:10 | NUR ---
PT AWAKE, NO SIGNS OF DISTRESS, REPORT GIVEN TO SOLOMON WHITTEN FOR CONTINUITY OF CARE.
--- NOTE | 2019-07-16 07:12 | NUR ---
RECEIVED BEDSIDE REPORT FROM FURNITURE DECALS INSPECTOR NURSE FOR CONTINUITY OF CARE. PT AWAKE AND PLAYING ON HIS IPAD ON BED AT THIS TIME. PT AAOX4 AND ABLE TO MAKE NEEDS KNOWN. RESPIRATION EVEN AND UNLABORED ON RA. DENIED SOB, PAIN, AND DIZZINESS. NO SIGNS OF DISTRESS NOTED. IV ON LAC 20G, CLEAN AND INTACT, INFUSING HEPARIN DRIP AT 13.10 ML/HR CONTINUALLY AT THIS TIME. SKIN CLEAN AND DRY. PT IS CONTINENT AND ABLE TO AMBULATE. DISCUSSED PLAN OF CARE WITH PT AND PT VERBALIZED UNDERSTANDING. EXPLAINED TO PT THAT OCCULT BLOOD STOOL IS NEEDED AND PT WAS AWARE AND HAT PLACE ON TOILET, SIGN POSTED ON DOOR. TELE MONITOR ATTACHED. SAFETY MEASURES IN PLACE. BED IN LOW POSITION AND CALL LIGHT WITHIN REACH. INSTRUCTED PT TO USE THE CALL LIGHT FOR ANY ASSISTANCE AND PT SAID OK.
[2019-07-16 07:45] LABS: ANION GAP 13.9 (8-16); CARBON DIOXIDE 27.8 mmol/L (21-32); POTASSIUM 4.7 mmol/L (3.5-5.1)
[2019-07-16 08:00] VITALS: BP 141/69
--- NOTE | 2019-07-16 08:25 | NUR ---
PT HAVE 1 LARGE SOFT, BROWN BM. COLLECTED OCCULT BLOOD AND SENT TO LAB. PT AWAKE AND USING HIS IPAD AT THIS TIME. DENIED SOB, DIZZINESS, AND PAIN. NO SIGNS OF DISTRESS NOTED. TELE MONITOR ATTACHED. SAFETY MEASURES IN PLACE.
[2019-07-16 08:26] LABS: BASOPHILS # (AUTO) 0.1 K/uL (0.00-0.22); BASOPHILS % (AUTO) 0.8 % (0.0-2.0); EOSINOPHILS # (AUTO) 0.3 K/uL (0-0.4); EOSINOPHILS % (AUTO) 4.3 % (0.0-4.0); HEMATOCRIT 45.5 % (36-52); HEMOGLOBIN 15.5 g/dL (12.0-18.0); MEAN CORPUSCULAR HEMOGLOBIN 31 pg (27-31); MEAN CORPUSCULAR HGB CONC 34 g/dL (33-37); MEAN CORPUSCULAR VOLUME 91.7 fL (80-94); MONOCYTES # (AUTO) 0.8 K/uL (0.8-1.0); MONOCYTES % (AUTO) 10.6 % (1.7-9.3); NEUTROPHILS % (AUTO) 56.3 % (42.2-75.2); PLATELET COUNT (AUTO) 158 K/uL (140-450); RED BLOOD CELL COUNT(AUTO) 4.97 MIL/uL (4.20-6.10); RED CELL DISTRIBUTION WIDTH 13.7 % (11.6-13.7); WHITE BLOOD COUNT (AUTO) 7.1 K/uL (4.8-10.8)
[2019-07-16] MEDS: NICOTINE TRANSD SYS 14 MG/24 HR PATCH TD SCH (09:00)
[2019-07-16] MEDS: metFORMIN 500 MG TAB PO SCH ×2 (09:19→17:09)
[2019-07-16] MEDS: GLIMEPIRIDE 2 MG TAB PO SCH (09:20)
[2019-07-16] MEDS: ASPIRIN 81 MG TAB.CHEW PO SCH (09:20)
[2019-07-16] MEDS: LISINOPRIL 5 MG TAB PO SCH (09:20)
--- NOTE | 2019-07-16 09:20 | NUR ---
CHECKED BP AND RECEIVED 141/69 PULSE 65. ADMINISTERED AM SCHEDULED MEDS, MED ED PROVIDED TO PT AND PT VERBALIZED UNDERSTANDING. PT REFUSED NICOTINE PATCH AND SAID " I DONT SMOKE ANYMORE AND I DONT NEED IT." RETURNED TO XIS. ASSESSED BLEEDING, NO SIGNS OF BLEEDING AND PT DENIED OF GUM BLEEDING AND ANY BLEEDING AT THIS TIME. DR PLUMMER IS TALKING TO PT AT BEDSIDE. NO SIGNS OF DISTRESS NOTED. TELE MONITOR ATTACHED. SAFETY MEASURES IN PLACE.
--- NOTE | 2019-07-16 11:47 | NUR ---
CHECKED BLOOD GLUCOSE ON R HAND AND RECEIVED 251, AND PT STATED " THIS IS TOO HIGH, I WANT TO CHECK AGAIN." RECHECKED BLOOD GLUCOSE ON L HAND AND RECEIVED 205, PT SAID "MY BLOOD GLUCOSE WAS FINE AT HOME THE WHOLE WEEK AND I DON'T KNOW WHY IT'S HIGH HERE. I DON'T WANT ANY INSULIN." EDUCATION PROVIDED TO PT AND PT INSISTED NOT WANTING ANY INSULIN COVERAGE. PT AWAKE AND TALKING TO VISITOR BY BEDSIDE. NO BLEEDING NOTED, DENIED PAIN, SOB, AND ANY DIZZINESS. NO SIGNS OF DISTRESS NOTED. TELE MONITOR ATTACHED. SAFETY MEASURES IN PLACE. BED IN LOW POSITION AND CALL LIGHT WITHIN REACH. INSTRUCTED PT TO USE THE CALL LIGHT FOR ANY ASSISTANCE AND PT VERBALIZED OK.
[2019-07-16 12:00] VITALS: BP 121/66
--- NOTE | 2019-07-16 13:36 | NUR ---
PT AWAKE AND RESTING ON BED AT THIS TIME. NO BLEEDING NOTED, DENIED PAIN, SOB, AND ANY DIZZINESS. NO SIGNS OF DISTRESS NOTED. TELE MONITOR ATTACHED. SAFETY MEASURES IN PLACE. BED IN LOW POSITION AND CALL LIGHT WITHIN REACH. INSTRUCTED PT TO USE THE CALL LIGHT FOR ANY ASSISTANCE AND PT SAID OK.
--- NOTE | 2019-07-16 15:42 | NUR ---
PT AWAKE AND TALKING TO KRYSTYNA BY BEDSIDE. NO BLEEDING NOTED, DENIED PAIN, SOB, AND ANY DIZZINESS. NO SIGNS OF DISTRESS NOTED. TELE MONITOR ATTACHED. SAFETY MEASURES IN PLACE. BED IN LOW POSITION AND CALL LIGHT WITHIN REACH. INSTRUCTED PT TO USE THE CALL LIGHT FOR ANY ASSISTANCE AND PT VERBALIZED OK.
[2019-07-16 16:00] VITALS: BP 120/66
[2019-07-16] MEDS: hePARIN / DEXT 5% PREMIX 250 ML IV SCH ×2 (16:02→19:08)
--- NOTE | 2019-07-16 16:02 | NUR ---
HUNG A NEW BAG OF HEPARIN DRIP, CONTINUE INFUSING AT 13.1 ML/HR. ASSESSED PT AND NO BLEEDING NOTED. PT AWAKE AND AMBULATING ON HALLWAY WITH KRYSTYNA. DENIED PAIN, SOB, AND DIZZINESS. NO SIGNS OF DISTRESS NOTED. TELE MONITOR ATTACHED.
[2019-07-16] MEDS ORDERED: WARFARIN 5 MG TAB ONE (17:02)
[2019-07-16] MEDS ORDERED: WARFARIN 2.5 MG TAB ONE (17:02)
[2019-07-16] MEDS: FENOFIBRATE 48 MG TAB PO SCH (17:08)
[2019-07-16] MEDS: WARFARIN 2.5 MG, WARFARIN 5 MG PO SCH ×2 (17:10)
[2019-07-16] MEDS: METOPROLOL 50 MG TAB PO SCH (17:11)
--- NOTE | 2019-07-16 17:12 | NUR ---
CHECKED BP PRIOR TO MEDS ADMINISTER, BP 130/65, PULSE. ADMINISTERED MEDS PER MD ORDER, PT TOLERATED WELL. MEDS EDUCATION PROVIDED TO PT AND PT AWARE OF BLEEDING PRECAUTION. NO SIGNS OF BLEEDING. PT DENIED PAIN, SOB, AND DIZZINESS. NO SIGNS OF DISTRESS NOTED. TELE MONITOR ATTACHED. SAFETY MEASURES IN PLACE.
--- NOTE | 2019-07-16 18:40 | NUR ---
ASSISTED PT TO CHANGE INTO CLEAN GOWN AND PROVIDED FRESH WATER. PT AWAKE AND TALKING TO KRYSTYNA AT BEDSIDE. DENIED PAIN, SOB, AND DIZZINESS. NO SIGNS OF BLEEDING NOTED. TELE MONITOR ATTACHED. SAFETY MEASURES IN PLACE.
--- NOTE | 2019-07-16 19:08 | NUR ---
RECEIVED [facility] LAB RESULT 76.8 FROM LAB, ADJUSTED INFUSING ACCORDINGLY, REDUCED 2 UNITS. ORDERED [facility] LAB.
--- NOTE | 2019-07-16 19:17 | NUR ---
ENDORSED PT AT BEDSIDE TO PULMONARY CARE NURSE NURSE FOR CONTINUITY OF CARE. PT IS AWAKE AND TALKING TO KRYSTYNA BY BEDSIDE. DENIED PAIN, SOB, AND ANY SORT BLEEDING. NO SIGNS OF BLEEDING NOTED. HEPARIN DRIP IS CONTINUE INFUSING AT 11.8 ML/HR. TELE MONITOR ATTACHED. SAFETY MEASURES IN PLACE.
--- NOTE | 2019-07-16 19:18 | NUR ---
RECEIVED PT ON BED, AAOX4, ABLE TO MAKE NEEDS KNOWN, VITAL SIGNS STABLE, SB ON TELE, ASYMPTOMATIC, DENIES ANY PAIN OR SOB, HEPARIN DRIP INFUSING WELL AT 1180 UNITS/H, NEXT PTT DRAW AT 07/17/19 O119, PLAN OF CARE DISCUSSED, SAFETY MEASURES IN PLACE, CALL LIGHT WITHIN REACH.
[2019-07-16 20:00] VITALS: BP 136/71
--- NOTE | 2019-07-16 20:40 | NUR ---
BLOOD SUGAR CHECKED WITH 159 RESULT, REFUSED INSULIN COVERAGE, RISK AND BENEFITS EXPLAINED, ALL NEEDS ATTENDED, DAUGHTER AT BEDSIDE.
--- NOTE | 2019-07-16 23:35 | NUR ---
SEEN PT SLEEPING, EASILY AROUSABLE, VITAL SIGNS STABLE, SB ON TELE, ASYMPTOMATIC, DENIES PAIN, NO SOB NOTED, HEPARIN DRIP INFUSING WELL, CONTINUE TO MONITOR CLOSELY.
[2019-07-17] VITALS: BP 128/69
--- NOTE | 2019-07-17 02:03 | NUR ---
PTT OF 72.2, RATE DECREASED TO 1050 UNITS/H PER HEPARIN PROTOCOL, NEXT PTT SCHEDULED AT 0758, PT EASILY AROUSABLE, DENIES PAIN OR SOB, MONITORED CLOSELY.
[2019-07-17 04:00] VITALS: BP 115/52
--- NOTE | 2019-07-17 04:00 | NUR ---
PT SLEEPING, EASILY AROUSABLE TO NAME, VITAL SIGNS STABLE, DENIES ANY PAIN OR SOB, HEPARIN INFUSING WELL AT 1050 UNITS /HOUR, MONITORED CLOSELY.
[2019-07-17] MEDS: BLOOD GLUCOSE MONITORING 1 DEV DEV FS SCH ×4 (06:34→20:19)
--- NOTE | 2019-07-17 07:23 | NUR ---
PT SLEEPING, NO SIGNS OF DISTRESS, REPORT GIVEN TO SOLOMON WHITTEN FOR CONTINUITY OF CARE.
--- NOTE | 2019-07-17 07:25 | NUR ---
RECEIVED BEDSIDE REPORT FROM CLICKING MACHINE OPERATOR NURSE FOR CONTINUITY OF CARE. PT AWAKE AND WATCHING TV ON BED AT THIS TIME. PT AAOX4 AND ABLE TO MAKE NEEDS KNOWN. RESPIRATION EVEN AND UNLABORED ON RA. DENIED SOB, PAIN, AND DIZZINESS. NO SIGNS OF DISTRESS NOTED. IV ON LAC 20G, CLEAN AND INTACT, INFUSING HEPARIN DRIP AT 10.50 ML/HR CONTINUALLY AT THIS TIME. SKIN CLEAN AND DRY. PT IS CONTINENT AND ABLE TO AMBULATE. DISCUSSED PLAN OF CARE WITH PT AND PT VERBALIZED UNDERSTANDING. TELE MONITOR ATTACHED. SAFETY MEASURES IN PLACE. BED IN LOW POSITION AND CALL LIGHT WITHIN REACH. INSTRUCTED PT TO USE THE CALL LIGHT FOR ANY ASSISTANCE AND PT VERBALIZED UNDERSTANDING.
[2019-07-17 08:00] VITALS: BP 135/64
[2019-07-17 08:44] LABS: BASOPHILS # (AUTO) 0.1 K/uL (0.00-0.22); BASOPHILS % (AUTO) 0.8 % (0.0-2.0); EOSINOPHILS # (AUTO) 0.2 K/uL (0-0.4); EOSINOPHILS % (AUTO) 3.4 % (0.0-4.0); HEMATOCRIT 46.9 % (36-52); HEMOGLOBIN 15.7 g/dL (12.0-18.0); MEAN CORPUSCULAR HEMOGLOBIN 31 pg (27-31); MEAN CORPUSCULAR HGB CONC 33 g/dL (33-37); MEAN CORPUSCULAR VOLUME 91.5 fL (80-94); MONOCYTES # (AUTO) 0.7 K/uL (0.8-1.0); NEUTROPHILS # (AUTO) 3.8 K/uL (1.8-7.7); NEUTROPHILS % (AUTO) 55.8 % (42.2-75.2); PLATELET COUNT (AUTO) 158 K/uL (140-450); RED BLOOD CELL COUNT(AUTO) 5.13 MIL/uL (4.20-6.10); RED CELL DISTRIBUTION WIDTH 14.3 % (11.6-13.7); WHITE BLOOD COUNT (AUTO) 6.8 K/uL (4.8-10.8)
[2019-07-17 08:54] LABS: PROTHROMBIN TIME 16.3 secs (10.8-13.4)
[2019-07-17 08:57] LABS: ANION GAP 12.7 (8-16); CARBON DIOXIDE 29.4 mmol/L (21-32); POTASSIUM 4.1 mmol/L (3.5-5.1)
[2019-07-17] MEDS: NICOTINE TRANSD SYS 14 MG/24 HR PATCH TD SCH (09:00)
[2019-07-17] MEDS: ASPIRIN 81 MG TAB.CHEW PO SCH (09:18)
[2019-07-17] MEDS: metFORMIN 500 MG TAB PO SCH ×2 (09:18→17:57)
[2019-07-17] MEDS: GLIMEPIRIDE 2 MG TAB PO SCH (09:18)
[2019-07-17] MEDS: LISINOPRIL 5 MG TAB PO SCH (09:19)
--- NOTE | 2019-07-17 09:20 | NUR ---
CHECKED VITAL SIGNS PRIOR TO MEDS ADMINISTER, VITAL SIGNS TEMP 97.4, BP 135/64, PULSE 70, SPO2 98% ON RA, RR 16, DENIED PAIN, SOB AND DIZZINESS. NO SIGNS OF DISTRESS NOTED. ADMINISTERED AM MEDS PER MD ORDER, PT REFUSED NICOTINE PATCH, MEDS ED PROVIDED TO PT AND PT VERBALIZED UNDERSTANDING. PT AWAKE AND TALKING TO VISITOR BY BEDSIDE. TELE MONITOR ATTACHED. SAFETY MEASURES IN PLACE. BED IN LOW POSITION AND CALL LIGHT WITHIN REACH. INSTRUCTED PT TO USE THE CALL LIGHT FOR ANY ASSISTANCE AND PT WAS AWARE.
--- NOTE | 2019-07-17 09:49 | NUR ---
ENDORSED PT AT BEDSIDE TO SOLOMON PIEDRA FOR CONTINUITY OF ARE, PT IS IN STABLE CONDITION. VISITOR IS BY BEDSIDE.
--- NOTE | 2019-07-17 09:52 | NUR ---
RECEIVE REPORT PT PTT IS 53.4, PT ON HEPARIN DRIP, NO CHANGE NEEDED, WILL RE-CHECK PTT AT 1552
--- NOTE | 2019-07-17 10:01 | NUR ---
RECEIVE REPORT FROM LAKESHIA, PT IS STABLE, INTRODUCE SELF, UPDATE WHITEBOARD, SAFETY MEASURES IN PLACE, FAMILY AT BEDSIDE, CALL LIGHT WITHIN REACH.
--- NOTE | 2019-07-17 10:07 | NUR ---
tALKED TO PHARMACIST REGARDING LATEST ptt 53.4, NO CHANGES WITH THE HEPARIN RATE OF 10.5 ML, WILL ORDER ANOTHER ptt IN 6 HOURS.
--- NOTE | 2019-07-17 12:02 | NUR ---
PT REFUSED INSULIN COVERAGE FOR BLOOD GLUCOSE OF 187
--- NOTE | 2019-07-17 13:23 | NUR ---
PATIENT LAER Addendum: 07/17/19 at 1326 by Heather Hernandez RN PATIENT, ALERT, ORIENTED, CONTINUE ON HEPARIN DRIP 1050 UNIT/HR, SKIN WARM TO TOUCH RESP. EVEN AND UNLABORED.
--- NOTE | 2019-07-17 13:40 | NUR ---
PT IS AWAKE RESTING IN BED, FAMILY AT BEDSIDE, HEPARIN DRIP STILL GOING, PT IS STABLE NO SIGNS OF DISTRESS NOTED, CALL LIGHT WITHIN REACH.
--- NOTE | 2019-07-17 15:03 | NUR ---
LATEST PTT LEVEL 51.9-- FOR PTT IN AM
[2019-07-17] MEDS: hePARIN / DEXT 5% PREMIX 250 ML IV SCH (15:07)
--- NOTE | 2019-07-17 15:40 | NUR ---
PT IS AWAKE WATCHING TV, PT IS STABLE, NO SIGNS OF DISTRESS NOTED, FAMILY AT BEDSIDE, CALL LIGHT WITHIN REACH.
[2019-07-17 16:00] VITALS: BP 127/67
--- NOTE | 2019-07-17 17:13 | NUR ---
PT IS REFUSING INSULIN COVERAGE FOR BLOOD GLUCOSE OF 185, PT IS STABLE, CALL LIGHT WITHIN REACH.
[2019-07-17] MEDS ORDERED: WARFARIN 2.5 MG TAB ONE (17:41)
[2019-07-17] MEDS ORDERED: WARFARIN 5 MG TAB ONE (17:42)
[2019-07-17] MEDS: FENOFIBRATE 48 MG TAB PO SCH (17:57)
[2019-07-17] MEDS: METOPROLOL 50 MG TAB PO SCH (17:57)
--- NOTE | 2019-07-17 17:57 | NUR ---
GAVE PT ORDERED MEDICATION, PT EDUCATION GIVEN, PT TOLERATED WELL, PT IS STABLE SEATING ON THE CHAIR,
[2019-07-17] MEDS: WARFARIN 2.5 MG, WARFARIN 5 MG PO SCH ×2 (17:58)
--- NOTE | 2019-07-17 19:15 | NUR ---
GAVE REPORT TO NIGHT NURSE FOR CONTINUITY OF CARE, PT IS STABLE
--- NOTE | 2019-07-17 19:15 | NUR ---
REPORT RECEIVED FROM AM NURSE AT BEDSIDE. PT IN STABLE CONDITION. AAOX4. INTRODUCED SELF TO PT. BOARD UPDATED. NO COMPLAINTS OF PAIN. NO SOB. AFEBRILE. PT IS AMBULATORY. IV SITE L AC 20G RUNNING HEPARIN@10.5ML/HR PATENT AND INTACT. SKIN WARM, DRY, AND INTACT WITH NO OPEN WOUNDS. BED LOCKED IN LOW POSITION. CALL HERNANDEZ WITHIN REACH. SAFETY PRECAUTION IN PLACE. ALL NEEDS MET AT THIS TIME.
--- NOTE | 2019-07-17 20:19 | NUR ---
BS 184. PT REFUSED INSULIN.
--- NOTE | 2019-07-17 22:00 | NUR ---
PT IN BED WATCHING TV. NO S/S OF DISTRESS NOTED. WILL CONTINUE TO MONITOR.
[2019-07-18] VITALS: BP 137/59
--- NOTE | 2019-07-18 00:10 | NUR ---
PT SLEEPING COMFORTABLY BUT AROUSABLE. NO S/S OF DISTRESS NOTED. NO COMPLAINTS OF PAIN. NO SOB. AFEBRILE. WILL CONTINUE TO MONITOR.
--- NOTE | 2019-07-18 02:15 | NUR ---
PT SLEEPING COMFORTABLY BUT AROUSABLE. NO S/S OF DISTRESS NOTED. NO COMPLAINTS OF PAIN. NO SOB. AFEBRILE. WILL CONTINUE TO MONITOR.
--- NOTE | 2019-07-18 04:30 | NUR ---
PT SLEEPING COMFORTABLY BUT AROUSABLE. NO S/S OF DISTRESS NOTED. NO RESPIRATIONS EVEN, UNLABORED, AND WNL. WILL CONTINUE TO MONITOR.
[2019-07-18] MEDS: BLOOD GLUCOSE MONITORING 1 DEV DEV FS SCH ×4 (05:31→20:41)
--- NOTE | 2019-07-18 05:31 | NUR ---
BS 110. NO INSULIN COVERAGE NEEDED.
--- NOTE | 2019-07-18 06:50 | NUR ---
PT SLEEPING COMFORTABLY BUT AROUSABLE. PT IN STABLE CONDITION.
[2019-07-18 07:41] LABS: PROTHROMBIN TIME 15.9 secs (10.8-13.4)
[2019-07-18 08:00] VITALS: BP 115/80
[2019-07-18] MEDS: NICOTINE TRANSD SYS 14 MG/24 HR PATCH TD SCH (09:00)
[2019-07-18] MEDS: ASPIRIN 81 MG TAB.CHEW PO SCH (09:07)
[2019-07-18] MEDS: metFORMIN 500 MG TAB PO SCH ×2 (09:08→17:13)
[2019-07-18] MEDS: GLIMEPIRIDE 2 MG TAB PO SCH (09:08)
[2019-07-18] MEDS: LISINOPRIL 5 MG TAB PO SCH (09:09)
--- NOTE | 2019-07-18 11:40 | NUR ---
Patient on heparin drip, and at 1050 units per hour and increase to 1180 units per hour per PTT protocol. Patient refuses BS, saying that he does not take insulin at home. Naeem Moreland RN
[2019-07-18 12:00] VITALS: BP 121/78
--- NOTE | 2019-07-18 12:05 | NUR ---
DISCHARGE PLANNING: RECEIVED AN ORDER FOR [facility] EVALUATION. PAM LIAISON MADE AWARE AND CAM TO MEET WITH THE PATIENT AND AT THE BEDSIDE TO PROVIDE BROCHURE AND TO PROVIDE INFORMATION REGARDING SERVICES. LIAISON CONTACTED PATIENT'S DAUGHTER. 1345: RECEIVED A CALL FROM [facility] DIRECTOR, INFORMING ME THAT THE PATIENT IS UPSET REGARDING LIAISON CALLING HIS DAUGHTER. CONTACTED PAM LIAISON REGARDING THIS MATTER, HE STATED HE MISSED UNDERSTOOD THE PATIENT WHEN THE PATIENT TOLD HIM HE WILL GIVE THE BROCHURE TO HIS DAUGHTER SO SHE CAN LOOK AT IT. MET WITH THE PATIENT AND HIS AT THE BEDSIDE TOGETHER WITH [facility] DIRECTOR AND EXPLAINED WHAT HAPPENED. THE PATIENT STATED "I WANT THE DOCTOR TO EXPLAIN IT TO ME." DR. PLUMMER MADE AWARE. Addendum: 07/18/19 at 1637 by Marisela Dhillon CM CHECKED WITH THE PATIENT IF DR. PLUMMER CONTACTED HIM. HE STATED NOT YET. Addendum: 07/19/19 at 1022 by Marisela Dhillon CM MET WITH THE PATIENT WITH HIS DAUGHTER KRYSTYNA AT THE BEDSIDE REGARDING DC PLAN TO [facility] AND IS IN AGREEMENT. PAM SRIVASTAVA MADE AWARE. Addendum: 07/19/19 at 1211 by Marisela Dhillon CM PER PAM NOWAK, PATIENT WILL GO TO [facility] ROOM [address] UNDER DR[address] PLUMMER. NUMBER TO CALL FOR REPORT [phone]. REQUESTING ICE CREAM FREEZER HELPER AFTER 1700. PRIMARY RN DEVON MADE AWARE. Addendum: 07/19/19 at 1218 by Marisela Dhillon CM PATIENT AND PATIENT'S DAUGHTER KRYSTYNA MADE AWARE. Addendum: 07/19/19 at 1249 by Marisela Dhillon CM PER ALANIS DURBIN WILL BE AT 1700. PATIENT MADE AWARE.
[2019-07-18] MEDS: hePARIN / DEXT 5% PREMIX 250 ML IV SCH ×3 (12:38→20:20)
[2019-07-18 16:00] VITALS: BP 126/72
[2019-07-18] MEDS ORDERED: WARFARIN 2.5 MG TAB ONE (17:03)
[2019-07-18] MEDS ORDERED: WARFARIN 5 MG TAB ONE (17:04)
--- NOTE | 2019-07-18 17:05 | NUR ---
Coumadin med coming up as not given however did double check med with Ingred Charge Nurse prior to administration. Naeem Moreland RN
[2019-07-18] MEDS: FENOFIBRATE 48 MG TAB PO SCH (17:17)
[2019-07-18] MEDS: WARFARIN 2.5 MG, WARFARIN 5 MG PO SCH ×2 (17:19)
[2019-07-18] MEDS: METOPROLOL 50 MG TAB PO SCH (17:23)
--- NOTE | 2019-07-18 18:40 | NUR ---
Patient on heparin drip and PTT drawn per lab per . Naeem Moreland RN
--- NOTE | 2019-07-18 19:30 | NUR ---
RECEIVED PT FROM REJI CARBAJALAUTISM SPECIALIST PT IS AAOX4 AMBULATORY ON HEPARIN DRIP 11.8 ML/H ON LEFT ARM RELATIVES AT BED SIDE INITIAL ASSESMENT DONE
--- NOTE | 2019-07-18 21:30 | NUR ---
BLOOD SUGAR TEST 190 PT REFUSED TO BE COVERAGE WITH HUMALOG NOT DISTRESS NOTED REMAIN JACKELINEBE
--- NOTE | 2019-07-19 00:04 | NUR ---
PT SLEEPING WELL DENIES ANY PAIN NOT ACTIVE BLEEDING,ON HEPARIN DRIP CONTINUOUSLY 1180 UNITS /H
[2019-07-19 00:07] VITALS: BP 125/75
[2019-07-19] MEDS: hePARIN / DEXT 5% PREMIX 250 ML IV SCH ×2 (01:34→16:51)
--- NOTE | 2019-07-19 02:00 | NUR ---
PT ON CLOSE MONITORING NOT DISTRESS NOTED ON HEPARIN DRIP 11.8 ML/H NOT DISTRESS NOTED REMAIN STABLE AT THIS TIME
--- NOTE | 2019-07-19 04:00 | NUR ---
SPONGE BATH GIVEN LINEN CHANGED PT REMAIN STABLE DENIES ANY PAIN OR DISCOMFORT, HEPARIN DRIP ON 1180 UNITS /H
[2019-07-19] MEDS: BLOOD GLUCOSE MONITORING 1 DEV DEV FS SCH ×2 (06:29→12:25)
--- NOTE | 2019-07-19 06:38 | NUR ---
BLOOD SUGAR TEST 152 AND PT REFUSED TO BE COVERAGE WITH INSULIN
[2019-07-19 06:56] LABS: BASOPHILS # (AUTO) 0.1 K/uL (0.00-0.22); EOSINOPHILS # (AUTO) 0.3 K/uL (0-0.4); EOSINOPHILS % (AUTO) 3.9 % (0.0-4.0); HEMATOCRIT 45.4 % (36-52); HEMOGLOBIN 15.2 g/dL (12.0-18.0); LYMPHOCYTES # (AUTO) 2.2 K/uL (2.0-11.5); LYMPHOCYTES % (AUTO) 30.3 % (20.5-51.1); MEAN CORPUSCULAR HEMOGLOBIN 31 pg (27-31); MEAN CORPUSCULAR HGB CONC 34 g/dL (33-37); MEAN CORPUSCULAR VOLUME 91.7 fL (80-94); MONOCYTES # (AUTO) 0.7 K/uL (0.8-1.0); MONOCYTES % (AUTO) 9.9 % (1.7-9.3); NEUTROPHILS # (AUTO) 4.1 K/uL (1.8-7.7); NEUTROPHILS % (AUTO) 54.9 % (42.2-75.2); PLATELET COUNT (AUTO) 166 K/uL (140-450); RED BLOOD CELL COUNT(AUTO) 4.95 MIL/uL (4.20-6.10); RED CELL DISTRIBUTION WIDTH 14.1 % (11.6-13.7); WHITE BLOOD COUNT (AUTO) 7.4 K/uL (4.8-10.8)
--- NOTE | 2019-07-19 07:10 | NUR ---
RECEIVED REPORT FROM BUCKLE SEWER MACHINE NURSE. PT IS AWAKE AND ORIENTED, STABLE, NO SIGNS OF DISTRESS. CALL LIGHT WITHIN PT'S REACH. SIDERAILS UP, BED ON LOW. WILL CONTINUE TO MONITOR
[2019-07-19 07:22] LABS: ANION GAP 11.3 (8-16); CARBON DIOXIDE 27.2 mmol/L (21-32); CREATININE 1.1 mg/dL (0.7-1.3); POTASSIUM 4.5 mmol/L (3.5-5.1)
[2019-07-19] MEDS: NICOTINE TRANSD SYS 14 MG/24 HR PATCH TD SCH (09:00)
--- NOTE | 2019-07-19 09:05 | NUR ---
SCHEDULED MEDS GIVEN. FAMILY AT BEDSIDE. PT REFUSED NICOTINE PATCH. MEDICATION EDUCATION AND SIDE EFFECTS GIVEN TO PT. PT VERBALIZED UNDERSTANDING. WILL CONTINUE TO MONITOR
--- NOTE | 2019-07-19 09:21 | NUR ---
SCREEN FOR LOW YESSY SCALE AT RISK, CONTINUE TO FOLLOW PRESSURE ULCER PREVENTION INTERVENTIONS. -TURN AND REPOSITION PATIENT Q2H, ASSIST IF NEEDED -ASSESS AND MONITOR SKIN CONDITION DURING POSITION CHANGES -OFFLOAD BILATERAL HEELS BY PLACING PILLOWS UNDER CALVES AT ALL TIMES, UNLESS OTHERWISE CONTRAINDICATED -PRESSURE REDISTRIBUTION BY PLACING PILLOWS AND OFFLOADING SACRALCOCCYX -KEEP SKIN CLEAN AND DRY AT ALL TIMES.
[2019-07-19 09:36] LABS: PROTHROMBIN TIME 18.3 secs (10.8-13.4)
[2019-07-19] MEDS: GLIMEPIRIDE 2 MG TAB PO SCH (09:42)
[2019-07-19] MEDS: LISINOPRIL 5 MG TAB PO SCH (09:43)
[2019-07-19] MEDS: metFORMIN 500 MG TAB PO SCH ×2 (09:43→17:03)
[2019-07-19] MEDS: ASPIRIN 81 MG TAB.CHEW PO SCH (09:43)
--- NOTE | 2019-07-19 11:00 | NUR ---
FREQUENT ROUNDINGS DONE. CALL LIGHT WITHIN PT'S REACH. PT IS STABLE. FAMILY AT BEDSIDE. WILL CONTINUE TO MONITOR
--- NOTE | 2019-07-19 12:25 | NUR ---
GLUCOSE CHECKED =132. NO COVERAGE NEEDED. WILL CONTINUE TO MONITOR
--- NOTE | 2019-07-19 16:00 | NUR ---
PT IS FOR DC AND TO BE PICKED UP BY 5PM TO [facility]. D/C PAPERS INSTRUCTED AND SIGNED. PT VERBALIZED UNDERSTANDING.
--- NOTE | 2019-07-19 16:09 | NUR ---
07/19/19 RD FOLLOW UP COMPLETED PLEASE REFER TO NUTRITION ASSESSMENT UNDER CARE ACTIVITY FOR ESTIMATED NUTRITIONAL NEEDS. 1. FOLLOW-UP RECOMMENDATION OF CARDIAC CCHO 60GM DIET. 2. NUTRITION EDUCATION OFFERED, PT DECLINED. 3. RD TO FOLLOW-UP 3-5 DAYS, MODERATE RISK CHACHA FELDER, RD
[2019-07-19] MEDS ORDERED: WARF7.5T PO (16:15)
[2019-07-19] MEDS ORDERED: WARFARIN 2.5 MG TAB ONE (16:59)
[2019-07-19] MEDS ORDERED: WARFARIN 5 MG TAB ONE (16:59)
[2019-07-19] MEDS: WARFARIN 2.5 MG, WARFARIN 5 MG PO SCH ×2 (17:02)
[2019-07-19] MEDS: METOPROLOL 50 MG TAB PO SCH (17:03)
[2019-07-19] MEDS: FENOFIBRATE 48 MG TAB PO SCH (17:04)
--- NOTE | 2019-07-19 17:09 | NUR ---
PT WAS TAKEN VIA [facility] TO [facility]. PT HAS HEPARIN DRIP AT 11.8 ML/HR. SCHEDULED PO MEDS GIVEN. PT IS STABLE.
--- NOTE | 2019-07-19 17:30 | NUR ---
REPORT GIVEN TO LATRICIA IN [facility]. FAXED OVER MEDICATION LIST TO THEM REQUESTED
== END 2019-07-19 17:10 | DRG 303 ==
LOC: MED 09:38 → MMU 11:36 → MTU 19:53
PROVIDERS: ADMIT Preventive Medicine Preventive Medicine/Occupational Environmental Medicine; ATTEND Preventive Medicine Preventive Medicine/Occupational Environmental Medicine
DX: I51.3 Intracardiac thrombosis, not elsewhere classified (principal); K21.9 Gastro-esophageal reflux disease without esophagitis; I11.9 Hypertensive heart disease without heart failure; E66.9 Obesity, unspecified; E11.65 Type 2 diabetes mellitus with hyperglycemia; E78.00 Pure hypercholesterolemia, unspecified; E78.5 Hyperlipidemia, unspecified; G40.909 Epilepsy, unspecified, not intractable, without status epilepticus; Z68.34 Body mass index [BMI] 34.0-34.9, adult; F17.210 Nicotine dependence, cigarettes, uncomplicated; I25.10 Atherosclerotic heart disease of native coronary artery without angina pectoris; Z79.01 Long term (current) use of anticoagulants; Z95.5 Presence of coronary angioplasty implant and graft; Z79.84 Long term (current) use of oral hypoglycemic drugs; Z79.82 Long term (current) use of aspirin; Z79.899 Other long term (current) drug therapy
CPT/HCPCS: 36415; 71045; 80048; 80053; 82272; 82550; 82553; 82948; 83735; 83880; 84100; 84484; 85025; 85610; 85730; 87081; 93005; 99285; J1644; J1815; Q0092